=== PATIENT | male | born 1985 | race African-American/Black ===

== ENCOUNTER 2017-07-11 17:11 | Emergency (ER) | payer MEDICAID ==
[~2017-07-11] VITALS: Ht 175.3 cm; Wt 75.0 kg
[2017-07-11 17:12] VITALS: BP 136/87
[2017-07-11] MEDS ORDERED: INSULIN (17:14)
== END 2017-07-11 19:49 | disposition left against medical advice (07) ==
LOC: ER 17:53
DX: R11.0 Nausea (principal); Z53.21 Procedure and treatment not carried out due to patient leaving prior to being seen by health care provider

== ENCOUNTER 2017-07-12 18:58 | Emergency (ER) | payer MEDICAID, OTHER ==
[~2017-07-12] VITALS: Ht 177.8 cm; Wt 48.0 kg
[~2017-07-12 18:58] MED LIST: INSULIN
[2017-07-12 20:37] LABS: BASOPHILS % 0.8 % (0.0-2.0); LYMPHOCYTES % 11.9 % (20.0-50.0); MEAN CORPUSCULAR HEMOGLOBIN 31.2 pg (28.0-32.0); MEAN CORPUSCULAR VOLUME 91.3 fL (80.0-94.0); MEAN PLATELET VOLUME 7.5 fl (7.4-10.4); MONOCYTES % 8.9 % (2.0-8.0); NEUTROPHILS % 78.4 % (40.0-76.0); PLATELET 350 x1000/uL (130-400); RED BLOOD CELL COUNT 4.82 mill/uL (4.7-6.1); RED CELL DISTRIBUTION WIDTH 12.3 % (11.6-14.6)
[2017-07-12 20:48] LABS: CHLORIDE 102 mEq/L (98-107)
[2017-07-12 20:50] LABS: BETA HYDROXYBUTYRATE 0.3 mMol/L (0.0-0.3)
[2017-07-12] MEDS ORDERED: MORPHINE SULFATE 4 MG/ML CPJ (NOT FOR IM USE) IV ONE (23:00)
[2017-07-12] MEDS ORDERED: SODIUM CHLORIDE 0.9% 1,000 ML IV ONE (23:09)
[2017-07-12] MEDS ORDERED: ONDANSETRON HCL 4MG/2ML VIAL IV ONE (23:15)
[2017-07-13 00:37] LABS: BG BASE EXCESS 5.1 mmol/L (-2.0-2.0); BG CARBOXYHEMOGLOBIN 0.6 % (0.5-1.5); BG DEOXYHEMOGLOBIN 3.5 % (0.0-5.0); BG FRACTION INSPIRED OXYGEN 21; BG HCO3 ACT 29.7 mmol/L (22.0-26.0); BG METHEMOGLOBIN 0.4 % (0.0-1.5); BG OXYGEN SATURATION 96.5 % (92.0-98.5); BG OXYHEMOGLOBIN 95.5 % (94.0-97.0); BG PCO2 43.3 mmHg (35.0-45.0); BG PH 7.454 (7.350-7.450); BG PO2 86.2 mmHg (75.0-100.0); BG SAMPLE SITE RIGHT RADIAL; BG TOTAL HEMOGLOBIN 15.2 g/dL (12.0-18.0); BG VENT MODE ROOM AIR
[2017-07-13] MEDS ORDERED: KETOROLAC 30MG/ML VIAL IV ONE (01:00)
[2017-07-13 01:54] VITALS: BP 111/82
== END 2017-07-13 04:45 | disposition home or self-care (01) ==
LOC: ER 19:22
DX: M54.89 Other dorsalgia (principal); R00.0 Tachycardia, unspecified; E11.9 Type 2 diabetes mellitus without complications; Z79.4 Long term (current) use of insulin
CPT/HCPCS: 36415; 36600; 71045; 80053; 82010; 82375; 82805; 82962; 83605; 84484; 85025; 85379; 93005; 96361; 96374; 96375; 99285; J1885; J2270; J2405; J7030; Z7610

== ENCOUNTER 2018-03-27 16:46 | Emergency (ER) | payer OTHER ==
[~2018-03-27] VITALS: Ht 185.4 cm; Wt 69.0 kg
[2018-03-27 16:53] VITALS: BP 110/70
== END 2018-03-27 21:47 | disposition left against medical advice (07) ==
LOC: ER 16:46
DX: Z53.21 Procedure and treatment not carried out due to patient leaving prior to being seen by health care provider (principal)

== ENCOUNTER 2019-10-06 05:11 | Emergency (ER) | payer MEDICAID, OTHER ==
[~2019-10-06] VITALS: Ht 182.9 cm; Wt 59.0 kg
[2019-10-06] MEDS ORDERED: SODIUM CHLORIDE 0.9% 1,000 ML IV ONE (06:35)
[2019-10-06] MEDS ORDERED: ONDANSETRON HCL 4MG/2ML INJ IV STA (06:35)
[2019-10-06] MEDS ORDERED: KETOROLAC 30MG/ML VIAL IV STA (06:35)
[2019-10-06 07:16] LABS: BASOPHILS % 0.3 % (0.0-2.0); HEMOGLOBIN. 11.1 g/dL (14.0-18.0); LYMPHOCYTES % 8.6 % (20.0-50.0); MEAN CORPUSCULAR HEMOGLOBIN 32.9 pg (28.0-32.0); MEAN CORPUSCULAR VOLUME 94.8 fL (80.0-94.0); MEAN PLATELET VOLUME 7.8 fl (7.4-10.4); MONOCYTES % 5.6 % (2.0-8.0); NEUTROPHILS % 85.5 % (40.0-76.0); PLATELET 261 x1000/uL (130-400); RED BLOOD CELL COUNT 3.37 mill/uL (4.7-6.1)
[2019-10-06 07:17] LABS: CHLORIDE 108 mEq/L (98-107)
[2019-10-06 07:25] LABS: BETA HYDROXYBUTYRATE 0.5 mMol/L (0.0-0.3)
[2019-10-06] MEDS ORDERED: ONDANSETRON HCL 4MG/2ML INJ IV ONE (08:15)
[2019-10-06] MEDS ORDERED: ACETAMINOPHEN WITH CODEINE 300/30MG TABLET PO ONE (08:15)
[2019-10-06 09:11] VITALS: BP 170/89
== END 2019-10-06 09:44 | disposition home or self-care (01) ==
LOC: ER 05:39
DX: E11.65 Type 2 diabetes mellitus with hyperglycemia (principal); M79.18 Myalgia, other site; R11.2 Nausea with vomiting, unspecified; Z79.4 Long term (current) use of insulin
CPT/HCPCS: 36415; 71045; 80053; 82010; 83690; 85025; 93005; 96361; 96374; 96375; 96376; 99285; J1885; J2405; J7030

== ENCOUNTER 2021-04-29 17:23 | Emergency (ER) | payer MEDICAID ==
[~2021-04-29] VITALS: Ht 185.4 cm; Wt 89.0 kg
[2021-04-29] MEDS ORDERED: HYDROCODONE/ACETAMINOPHEN 5/325MG TABLET PO ONE (20:00)
[2021-04-29 20:07] VITALS: BP 120/60
== END 2021-04-29 20:32 | disposition home or self-care (01) ==
LOC: ER 17:23
DX: M25.561 Pain in right knee (principal); E11.9 Type 2 diabetes mellitus without complications; Z79.4 Long term (current) use of insulin; X50.1XXA Overexertion from prolonged static or awkward postures, initial encounter; Y93.89 Activity, other specified; Y92.018 Other place in single-family (private) house as the place of occurrence of the external cause
CPT/HCPCS: 29505; 73560; 99283

== ENCOUNTER 2021-06-11 20:27 | Emergency (ER) | payer MEDICAID ==
[~2021-06-11] VITALS: Ht 177.8 cm; Wt 60.0 kg
[2021-06-12] MEDS ORDERED: KETOROLAC 60MG/2ML VIAL IM ONE (02:00)
[2021-06-12 02:15] VITALS: BP 166/86
== END 2021-06-12 02:16 | disposition home or self-care (01) ==
LOC: ER 20:27
DX: R22.43 Localized swelling, mass and lump, lower limb, bilateral (principal); E11.40 Type 2 diabetes mellitus with diabetic neuropathy, unspecified; I10 Essential (primary) hypertension; E78.00 Pure hypercholesterolemia, unspecified; Z79.4 Long term (current) use of insulin
CPT/HCPCS: 82962; 96372; 99283; J1885

== ENCOUNTER 2023-04-29 14:56 | Emergency (ER) | payer MEDICAID, OTHER ==
[~2023-04-29] VITALS: Ht 172.7 cm; Wt 70.0 kg
[2023-04-29 15:14] VITALS: O2SAT 99
[2023-04-29] MEDS ORDERED: POTASSIUM CHLORIDE INJ 40 MEQ in SODIUM CHLORIDE 0.9% 230 ML IV PRN (15:15)
[2023-04-29] MEDS ORDERED: SODIUM CHLORIDE 0.9% 1,000 ML IV SCH (15:15)
[2023-04-29] MEDS ORDERED: KCL 20MEQ/100ML PREMIX 100 ML IV PRN (15:15)
[2023-04-29] MEDS ORDERED: DEXT 5%/0.9% NACL 1,000 ML IV SCH (15:15)
[2023-04-29] MEDS ORDERED: DEXTROSE 50% WATER 50ML SYRINGE IV PRN (15:15)
[2023-04-29] MEDS: BLOOD SUGAR DIAGNOSTIC STRIP TEST SCH ×4 (15:15→18:34)
[2023-04-29 15:35] LABS: HEMATOCRIT. 29.9 % (42.0-52.0); HEMOGLOBIN. 10.4 g/dL (14.0-18.0); MEAN CORPUSCULAR HEMOGLOBIN 33.7 pg (28.0-32.0); MEAN CORPUSCULAR HGB CONC 34.7 g/dL (31.0-37.0); MEAN CORPUSCULAR VOLUME 97.1 fL (80.0-94.0); MEAN PLATELET VOLUME 7.5 fl (7.4-10.4); PLATELET 215 x1000/uL (130-400); RED BLOOD CELL COUNT 3.08 mill/uL (4.7-6.1); RED CELL DISTRIBUTION WIDTH 13.1 % (11.6-14.6); WHITE BLOOD COUNT 14.6 x1000/uL (4.5-11.0)
[2023-04-29 15:39] LABS: DIFFERENTIAL COMMENT 1
[2023-04-29 15:57] LABS: CALCIUM 9.2 mg/dL (8.7-10.4); CARBON DIOXIDE 24 mEq/L (21-32); CHLORIDE 110 mEq/L (98-107); CREATININE 3.3 mg/dL (0.6-1.3); GLUCOSE 327 mg/dL (70-105); PHOSPHORUS 2.8 mg/dL (2.5-4.9); POTASSIUM 3.7 mEq/L (3.5-5.1); SODIUM 141 mEq/L (136-145); UREA NITROGEN BLOOD 33 mg/dL (9-23)
[2023-04-29 16:02] LABS: PLATELET ESTIMATE NORMAL
[2023-04-29 16:39] LABS: BG BASE EXCESS -4.2 mmol/L (-2.0-2.0); BG CARBOXYHEMOGLOBIN 0.1 % (0.5-1.5); BG DEOXYHEMOGLOBIN 3.1 % (0.0-5.0); BG FRACTION INSPIRED OXYGEN 21; BG HCO3 ACT 20.7 mmol/L (22.0-26.0); BG METHEMOGLOBIN 0.3 % (0.0-1.5); BG OXYGEN SATURATION 96.9 % (92.0-98.5); BG OXYHEMOGLOBIN 96.5 % (94.0-97.0); BG PCO2 37.2 mmHg (35.0-45.0); BG PH 7.363 (7.350-7.450); BG SAMPLE SITE LEFT BRACHIAL; BG TOTAL HEMOGLOBIN 11.2 g/dL (12.0-18.0); BG VENT MODE ROOM AIR
[2023-04-29] MEDS ORDERED: INSULIN REGULAR (HUMULIN R) 300UNITS/3ML VIAL IV ONE (16:45)
[2023-04-29] MEDS ORDERED: SODIUM CHLORIDE 0.9% 1,000 ML IV ONE (16:45)
[2023-04-29] MEDS ORDERED: LABETALOL 5MG/ML SYR 20 MG/4 ML SYRINGE IV NR (18:15)
[2023-04-29] MEDS ORDERED: LABETALOL HCL VIAL 20 MG/4 ML VIAL IV ONE (18:15)
[2023-04-29] MEDS ORDERED: DIAZEPAM 5 MG/ML 2ML CPJ IV ONE (18:15)
[2023-04-29 18:45] VITALS: BP 185/118; PULSE 95; RESP 12; TEMP 97.7
== END 2023-04-29 19:40 | disposition short-term general hospital (02) ==
LOC: ER 14:56 → CANBEDREQ 17:38 → ER 19:40
DX: E11.65 Type 2 diabetes mellitus with hyperglycemia (principal); N17.9 Acute kidney failure, unspecified; I10 Essential (primary) hypertension; E78.00 Pure hypercholesterolemia, unspecified; Z98.890 Other specified postprocedural states
CPT/HCPCS: 99285; 96374; 96361; 96375; 80048; 83735; 83930; 84100; 85025; 36415; 82805; 82375; 36600; 82962; J3360; J3490; J7042; J7030; J1815

== ENCOUNTER 2023-05-07 16:44 | Emergency (ER) | payer MEDICAID, OTHER ==
[~2023-05-07] VITALS: Ht 177.8 cm; Wt 61.0 kg
[2023-05-07 17:24] VITALS: O2SAT 98
[2023-05-07 19:18] LABS: BASOPHILS % 0.9 % (0.0-2.0); HEMATOCRIT. 28.3 % (42.0-52.0); HEMOGLOBIN. 9.2 g/dL (14.0-18.0); LYMPHOCYTES % 26.3 % (20.0-50.0); MEAN CORPUSCULAR HEMOGLOBIN 32.2 pg (28.0-32.0); MEAN CORPUSCULAR HGB CONC 32.7 g/dL (31.0-37.0); MEAN CORPUSCULAR VOLUME 98.4 fL (80.0-94.0); MEAN PLATELET VOLUME 7.5 fl (7.4-10.4); NEUTROPHILS % 56.8 % (40.0-76.0); PLATELET 287 x1000/uL (130-400); RED BLOOD CELL COUNT 2.87 mill/uL (4.7-6.1); RED CELL DISTRIBUTION WIDTH 13.6 % (11.6-14.6); WHITE BLOOD COUNT 10.4 x1000/uL (4.5-11.0)
[2023-05-07 19:34] LABS: ALANINE AMINOTRANSFERASE 35 IU/L (10-49); ALBUMIN 3.6 g/dL (3.2-4.8); ASPARTATE AMINOTRANSFERASE 45 IU/L (<34); BILIRUBIN TOTAL 0.3 mg/dL (0.1-1.0); CALCIUM 8.8 mg/dL (8.7-10.4); CARBON DIOXIDE 22 mEq/L (21-32); CHLORIDE 112 mEq/L (98-107); CREATININE 3.4 mg/dL (0.6-1.3); POTASSIUM 4.4 mEq/L (3.5-5.1); PROTEIN TOTAL 6.6 g/dL (6.0-8.3); SODIUM 142 mEq/L (136-145); TROPONIN I HIGH SENSITIVITY 27 ng/L (3.0-53); UREA NITROGEN BLOOD 47 mg/dL (9-23)
[2023-05-07] MEDS ORDERED: FUROSEMIDE 20MG TABLET PO ONE (20:15)
[2023-05-07 20:18] LABS: GLUCOSE 67 mg/dL (70-105)
[2023-05-07 20:56] LABS: TROPONIN I HIGH SENSITIVITY 25 ng/L (3.0-53)
[2023-05-07 21:45] VITALS: BP 167/113; PULSE 82; RESP 17; TEMP 98
[2023-05-07] MEDS ORDERED: CLONIDINE 0.1MG TABLET PO ONE (21:45)
== END 2023-05-07 21:54 | disposition home or self-care (01) ==
LOC: ER 17:38
DX: R60.0 Localized edema (principal); I10 Essential (primary) hypertension; E11.22 Type 2 diabetes mellitus with diabetic chronic kidney disease; I12.0 Hypertensive chronic kidney disease with stage 5 chronic kidney disease or end stage renal disease; N18.6 End stage renal disease; E78.00 Pure hypercholesterolemia, unspecified
CPT/HCPCS: 36415; 71045; 80053; 83880; 84484; 85025; 93005; 99285

== ENCOUNTER 2023-07-06 12:55 | Emergency (ER) | payer BC, MEDICAID, OTHER ==
[~2023-07-06] VITALS: Ht 177.8 cm; Wt 61.2 kg
[2023-07-06 13:21] VITALS: BP 160/94; PULSE 85; RESP 16; TEMP 98.2; O2SAT 100
[2023-07-06] MEDS ORDERED: AMLO5TAB4 MT (14:55)
[2023-07-06] MEDS ORDERED: GUAI-735 MT (14:55)
[2023-07-06] MEDS: AMLODIPINE 5MG TABLET PO ONE (15:25)
== END 2023-07-06 16:04 | disposition home or self-care (01) ==
LOC: ER 14:39
DX: I10 Essential (primary) hypertension (principal); R05.9 Cough, unspecified; E11.9 Type 2 diabetes mellitus without complications; E78.00 Pure hypercholesterolemia, unspecified
CPT/HCPCS: 71045; 99283

== ENCOUNTER 2023-07-08 11:17 | Emergency (ER) | payer BC ==
[~2023-07-08] VITALS: Ht 170.2 cm; Wt 61.0 kg
[~2023-07-08 11:17] MED LIST changes: +AMLO5TAB4 MT; +GUAI-735 MT
[2023-07-08 11:30] VITALS: O2SAT 100
[2023-07-08 13:01] VITALS: BP 129/87; PULSE 76; RESP 13; TEMP 98.5
== END 2023-07-08 13:04 | disposition home or self-care (01) ==
LOC: ER 11:17
DX: R05.9 Cough, unspecified (principal); E11.9 Type 2 diabetes mellitus without complications; E78.00 Pure hypercholesterolemia, unspecified; I10 Essential (primary) hypertension; Z79.899 Other long term (current) drug therapy
CPT/HCPCS: 99281

== ENCOUNTER 2023-12-28 09:14 | Emergency (ER) | payer BC, MEDICAID ==
[~2023-12-28] VITALS: Ht 172.7 cm; Wt 60.0 kg
[2023-12-28 09:20] VITALS: O2SAT 100
[2023-12-28] MEDS: AMLODIPINE 5MG TABLET PO ONE (10:18)
[2023-12-28 11:42] VITALS: BP 213/114; PULSE 80; RESP 16; TEMP 37.11408
[2023-12-28] MEDS ORDERED: TOPUD PO (11:54)
== END 2023-12-28 12:04 | disposition home or self-care (01) ==
LOC: ER 09:14
DX: S60.011A Contusion of right thumb without damage to nail, initial encounter (principal); E11.9 Type 2 diabetes mellitus without complications; E78.00 Pure hypercholesterolemia, unspecified; I10 Essential (primary) hypertension; Z88.8 Allergy status to other drugs, medicaments and biological substances; Z79.899 Other long term (current) drug therapy
CPT/HCPCS: 73140; 99283

== ENCOUNTER 2024-11-27 17:50 | Emergency (ER) | payer MEDICAID ==
[~2024-11-27] VITALS: Ht 172.7 cm; Wt 70.0 kg
[~2024-11-27 17:50] MED LIST changes: -AMLO5TAB4 MT; +AMLO5TAB5 MT; +TOPUD PO
[2024-11-27 18:00] VITALS: O2SAT 100
[2024-11-27] MEDS ORDERED: TETANUS, DIPHTHERIA, PERTUSSIS VAC/PF 0.5ML (>10YR OLD) IM ONE (19:30)
[2024-11-27] MEDS ORDERED: AMOXICILLIN/POTASSIUM CLAVULANATE 875/125MG TAB PO ONE (19:30)
[2024-11-27] MEDS ORDERED: AMOX1TAB16 MT (20:35)
[2024-11-27] MEDS: AMOXICILLIN/POTASSIUM CLAVULANATE 875/125MG TAB PO NR (21:13)
[2024-11-27] MEDS: TETANUS, DIPHTHERIA, PERTUSSIS VAC/PF 0.5ML (>10YR OLD) IM ONE (21:14)
[2024-11-27 21:19] VITALS: BP 126/83; PULSE 76; RESP 15; TEMP 36.7; O2SAT 97
[2024-11-27] MEDS ORDERED: AMOX1TAB49 MT (23:46)
== END 2024-11-27 21:20 | disposition home or self-care (01) ==
LOC: ER 17:50
DX: S61.451A Open bite of right hand, initial encounter (principal); L03.011 Cellulitis of right finger; E11.9 Type 2 diabetes mellitus without complications; E78.00 Pure hypercholesterolemia, unspecified; I10 Essential (primary) hypertension; Z79.899 Other long term (current) drug therapy; Z88.5 Allergy status to narcotic agent; W54.0XXA Bitten by dog, initial encounter; Y93.89 Activity, other specified; Y92.89 Other specified places as the place of occurrence of the external cause; Y99.8 Other external cause status
CPT/HCPCS: 90715; 90471; 99283; Z7610 ×2